=== PATIENT | male | born 1985 | race Caucasian/White ===

== ENCOUNTER 2021-05-16 19:50 | Emergency (ER) | payer MEDICAID ==
[~2021-05-16] VITALS: Ht 172.7 cm; Wt 100.0 kg
[2021-05-16] MEDS ORDERED: ONDANSETRON HCL 4MG/2ML INJ IV STA (23:35)
[2021-05-16] MEDS ORDERED: MORPHINE SULFATE 4 MG/ML CPJ (NOT FOR IM USE) IV STA (23:35)
[2021-05-16] MEDS ORDERED: SODIUM CHLORIDE 0.9% 1,000 ML IV ONE (23:45)
[2021-05-16 23:52] LABS: BASOPHILS % 0.8 % (0.0-2.0); HEMATOCRIT. 41.7 % (42.0-52.0); HEMOGLOBIN. 14.4 g/dL (14.0-18.0); LYMPHOCYTES % 39.7 % (20.0-50.0); MEAN CORPUSCULAR HEMOGLOBIN 27.6 pg (28.0-32.0); MEAN CORPUSCULAR VOLUME 79.8 fL (80.0-94.0); MEAN PLATELET VOLUME 8.8 fl (7.4-10.4); MONOCYTES % 8.1 % (2.0-8.0); NEUTROPHILS % 49.4 % (40.0-76.0); PLATELET 214 x1000/uL (130-400); RED BLOOD CELL COUNT 5.22 mill/uL (4.7-6.1); RED CELL DISTRIBUTION WIDTH 13.3 % (11.6-14.6)
[2021-05-16 23:56] LABS: CHLORIDE 109 mEq/L (98-107)
[2021-05-16 23:59] VITALS: BP 148/90
[2021-05-17] MEDS ORDERED: IOHEXOL-350 100 ML BOTTLE ONE (01:14)
[2021-05-17] MEDS ORDERED: IBUP-2029 MT (02:54)
[2021-05-17] MEDS ORDERED: BACL-141 MT (02:54)
== END 2021-05-17 03:03 | disposition home or self-care (01) ==
LOC: ER 19:50
DX: R07.89 Other chest pain (principal)
CPT/HCPCS: 36415; 71045; 71275; 80053; 83880; 84484; 85025; 85379; 93005; 96361; 96374; 96375; 99285; J2270; J2405; J7030; Q9967